=== PATIENT | female | born 1965 | race Caucasian/White ===

== ENCOUNTER → 2018-04-11 | Outpatient (CLI) | payer MEDICARE, MEDICAID ==
[~2018-04-11] MED LIST: REGADENOSON 0.4 MG/5 ML DISP.SYRIN. IV ONE
--- NOTE | 2018-04-11 09:23 | PCVCIMAG ---
APPROVED REPORT Study performed: 04/11/2018 08:08:16 EXAM: Comprehensive 2D, Doppler, and color-flow Echocardiogram Patient Location: Echo lab Status: routine BSA: 1.92 HR: 77 bpmBP: 104/78 mmHg Rhythm: NSR Other Information Study Quality: Good Risk Factors: Cardiac Risk Factors: Hyperlipidemia Indications Dyspnea Palpitations Fatigue Chest Pain 2D Dimensions IVSd: 11.47 (7-11mm)LVOT Diam: 20.00 (18-24mm) LVDd: 45.66 mm PWd: 10.78 (7-11mm)Ascending Ao: 33.92 (22-36mm) LVDs: 34.40 (25-40mm) Left Atrium: 36.23 (27-40mm) Aortic Root: 34.22 mm LV Single Plane 4CH: 56.30 % LV Single Plane 2CH: 64.74 % Biplane EF: 60.7 % Volumes Left Atrial Volume (Systole) Single Plane 4CH: 19.91 mLSingle Plane 2CH: 29.40 mL LA ESV Index: 13.00 mL/m2 Aortic Valve AoV Peak Maninder.: 1.28 m/s AO Peak Gr.: 6.57 mmHg Mitral Valve E/A Ratio: 0.8 MV Decel. Time: 223.10 ms MV E Max Maninder.: 0.61 m/s MV A Maninder.: 0.76 m/s IVRT: 62.28 ms TDI E/Lateral E': 6.78E/Medial E': 8.71 Medial E' Maninder.: 0.07 m/s Lateral E' Maninder.: 0.09 m/s Pulmonary Valve PV Peak Maninder.: 0.71 m/sPV Peak Gr.: 2.04 mmHg Pulmonary Vein P Vein S: 0.59 m/sP Vein A: 0.23 m/s P Vein D: 0.46 m/sP Vein A Dur.: 107.3 msec P Vein S/D Ratio: 1.28 Tricuspid Valve TR Peak Maninder.: 2.15 m/sRAP Estimate: 7.00 mmHg TR Peak Gr.: 18.47 mmHg PA Pressure: 26.00 mmHg Left Ventricle The left ventricle is normal size. There is normal LV segmental wall motion. Borderline concentric left ventricular hypertrophy. Left ventricular systolic function is normal. The left ventricular ejection fraction is within the normal range. LVEF is >55%. Grade I - abnormal relaxation pattern. Right Ventricle The right ventricle is normal size. The right ventricular systolic function is normal. Atria The left atrium size is normal. The right atrium size is normal. Aortic Valve The aortic valve is normal in structure. No aortic regurgitation is present. There is no aortic valvular stenosis. Mitral Valve The mitral valve is normal in structure. There is no mitral valve regurgitation noted. No evidence of mitral valve stenosis. Tricuspid Valve The tricuspid valve is normal in structure. Trace tricuspid regurgitation. Pulmonary artery pressure is 26 mmHg. Pulmonic Valve The pulmonary valve is normal in structure. Mild pulmonic regurgitation. Great Vessels The aortic root is normal in size. IVC is normal in size and collapses >50% with inspiration. Pericardium There is no pericardial effusion. <Conclusion> The left ventricle is normal size. Left ventricular systolic function is normal. Grade I - abnormal relaxation pattern. The right ventricle is normal size. The left atrium size is normal. The aortic valve is normal in structure. There is no mitral valve regurgitation noted. Trace tricuspid regurgitation. Pulmonary artery pressure is 26 mmHg.
--- NOTE | 2018-04-11 12:50 | PCVCIMAG ---
APPROVED REPORT Imaging Protocol: Rest Tc-99m/Stress Tc-99m 1 day Study performed: 04/11/2018 08:53:59 Indication: Chest pain, Dyspnea, Abnormal EKG, Pre-Operative CV evaluation, Palpitations Patient Location: Out-Patient Stress Nurse: Danay Byers RN NC Tech:NOREEN HobbsMT Ht: 5 ft 5 in Wt: 184 lbs BSA: 1.91 m2 HR: 82 bpm BP: 123/81 mmHg BMI: 30.61 Rhythm: SR Medical History Medical History: Hyperlipidemia Medications: Xanax, Prozac, Zyrtec, Lauda, Lovastatin, Promethazine, Topamax, Ventolin, [id number] Allergies: ASA, Augmentin, Sulfa Cardiac Risk Factors: Age Pretest Chest Pain Characteristics: No chest pain Exercise History: Sedentary Physical Disabilities: Legs Resting Data Rest SPECT myocardial perfusion imaging was performed in supine position 45 minutes following the intravenous injection of 10.2 mCi of Tc-99m Sestamibi. Time of rest injection: 0915 Date: 04/11/2018 Administration Route: IV Administration Site: Left AC Pharmacologic Stress Pharmacologic stress test was performed by injecting Regadenoson 0.4 mg IV push over 10-15 seconds immediately followed by the intravenous injection of 34.1 mCi of Tc-99m Sestamibi. Time of stress injection: 1100 Date: 04/11/2018 Administration Route: IV Administration Site: Left AC Gated Stress SPECT was performed 45 minutes after stress injection. The images were gated to evaluate regional wall motion and calculate left ventricular ejection fraction. Stress Test Details Stress Test: Pharmacologic stress was paired with low level exercise. Reason for pharmacologic stress test: physical limitation, arthritic knees. HRMax Heart Rate (APMHR): 165 bpm Resting HR: 82 bpmTarget HR (85% APMHR): 140 bpm Max HR Achieved: 134 bpm % of APMHR: 81 Recovery HR: 99 bpm BP Resting BP: 123/81 mmHg Recovery BP: 125/65 mmHg ECG Resting ECG: Sinus Rhythm Stress ECG: Sinus Rhythm, nonspecific ST-T abnormalities ST Change: Non-ischemic Recovery ECG: Sinus Tachycardia Clinical Reason for Termination: low level exercise terminated early due to dizziness Stress Symptoms: Dyspnea, Dizziness Exercise duration: 2 min 20 sec Exercise capacity: 1.6 METs Symptoms resolved with caffeine. Study Quality Study: Good Artifact: Mild Breast artifact Study Data Post stress, the left ventricular ejection was 70%.. SSS: 1 SRS: 12 SDS: 0 TID = 0.85. Perfusion There is a small area of mildly reduced uptake in the apical segment of the inferior wall which is seen on the stress images as well as the resting images. This area thickens and moves normally and is most consistent with attenuation artifact. Wall Motion Normal left ventricular wall motion. Nuclear Conclusion ECG Findings: negative for ischemia Clinical Findings: non-diagnostic Nuclear Findings: negative for ischemia Exercise Capacity: not assessed Left Ventricular Function: normal Risk Study: low This study is of low probability for inducible ischemia or prior infarct. Normal global and segmental LV systolic function. Artifact: Mild Breast artifact
== END | disposition home or self-care (01) ==
LOC: PCVCIMAG 09:12
PROVIDERS: ATTEND Internal Medicine Cardiovascular Disease
DX: I49.9 Cardiac arrhythmia, unspecified (principal); E78.5 Hyperlipidemia, unspecified; R06.09 Other forms of dyspnea; R07.9 Chest pain, unspecified; R94.31 Abnormal electrocardiogram [ECG] [EKG]; R00.2 Palpitations; Z79.899 Other long term (current) drug therapy
CPT/HCPCS: 78452; 93017; 93306; A9500; G0463; J2785